=== PATIENT | male | born 1945 | race Caucasian/White ===

== ENCOUNTER 2024-01-13 09:11 | Outpatient (CLI) | payer MEDICARE, BC | END 2024-01-13 09:12 | disposition home or self-care (01) | LOC: LABBT 09:11 | PROVIDERS: ATTEND Thoracic Surgery (Cardiothoracic Vascular Surgery) | DX: Z01.818 Encounter for other preprocedural examination (principal); I74.09 Other arterial embolism and thrombosis of abdominal aorta | CPT/HCPCS: 71046 ==

== ENCOUNTER 2024-01-13 09:30 | Inpatient (IN) | payer MEDICARE, BC ==
[2024-01-13 11:27] LABS: Hematocrit 51.5 % (38.8-50.0); Hemoglobin 17.8 g/dL (13.5-17.5); Mean Corpuscular HGB CONC 34.6 g/dL (32.0-36.0); Mean Corpuscular Hemoglobin 31.4 pg (27.0-33.0); Mean Corpuscular Volume 90.8 fl (81.2-95.1); Mean Platelet Volume 10.7 fl (7.4-10.4); Platelet Count 262 10x3/uL (150-450); RBC Distribution Width 13.8 % (11.5-14.5); Red Blood Cell (RBC) Count 5.67 10x6/uL (4.32-5.72); White Blood Cell (WBC) Count 8.7 10x3/uL (3.5-10.5)
[2024-01-13 11:55] LABS: Anion Gap 15 mmol/L (10-20); BUN (Urea Nitrogen) 19 mg/dL (8.4-25.7); Calc. Creatinine Clearance 0 mL/min (70-130); Calcium 9.6 mg/dL (7.8-10.44); Carbon Dioxide 24 mmol/L (23-31); Chloride 104 mmol/L (98-107); Estimated GFR 84; Glucose 117 mg/dL (83-110); Potassium 4.3 mmol/L (3.5-5.1); Sodium 139 mmol/L (136-145)
[2024-01-13 12:22] LABS: PTT 26.8 sec (22.0-33.0); Prothrombin Time 10.7 sec (9.5-12.1)
[2024-01-15] MEDS ORDERED: Heparin 5,000 UNITS/ML VIAL ONE (06:36)
[2024-01-15] MEDS ORDERED: EPINEPHrine 1 MG/ML VIAL ONE (06:37)
[2024-01-15] MEDS ORDERED: Bupivacaine PF 0.5% 30 ML VIAL ONE (06:37)
[2024-01-15] MEDS ORDERED: PROPOFOL 20 ML ONE (06:46)
[2024-01-15] MEDS ORDERED: fentaNYL PF 100 MCG/2 ML SYRINGE ONE ×4 (06:46→11:44)
[2024-01-15] MEDS ORDERED: Vecuronium 10 MG VIAL ONE (06:46)
[2024-01-15] MEDS ORDERED: Lidocaine 2% PF 5 ML VIAL ONE (06:46)
[2024-01-15] MEDS ORDERED: PHENYLEPHRINE-NS 100 MCG/ML 10 ML SYRINGE ONE ×2 (06:46→06:48)
[2024-01-15] MEDS ORDERED: Lidocaine 1% PF 5 ML VIAL ONE (06:48)
[2024-01-15] MEDS ORDERED: Glycopyrrolate 0.2 MG/ML 5 ML SYRINGE ONE (06:48)
[2024-01-15] MEDS ORDERED: NEOSTIGMINE 3 MG/3 ML SYR 3 MG/3 ML SYRINGE ONE (06:48)
[2024-01-15] MEDS ORDERED: Midazolam HCl 2 mg/2 ml Vial ONE (06:58)
[2024-01-15] MEDS ORDERED: Ondansetron ODT 4 MG TAB ONE (07:10)
[2024-01-15] MEDS ORDERED: Sodium Chloride 0.9% 100 ML ONE (07:15)
[2024-01-15] MEDS ORDERED: Heparin 10,000 UNITS/1 ML VIAL 30,000 UNITS in Sodium Chloride 0.9% 1,000 ML FS SCH (07:15)
[2024-01-15] MEDS ORDERED: CEFAZOLIN 2 GM VIAL ONE (07:15)
[2024-01-15] MEDS ORDERED: ePHEDrine Sulfate 50 MG/10 ML VIAL ONE (08:05)
[2024-01-15] MEDS ORDERED: Dexamethasone 20 MG/5 ML VIAL ONE (08:13)
[2024-01-15] MEDS ORDERED: Ondansetron PF 4 MG/2 ML Vial ONE (08:13)
[2024-01-15] MEDS ORDERED: Dexmedetomidine 200 MCG/2 ML VIAL ONE (08:13)
[2024-01-15] MEDS ORDERED: Albumin 5% 500 ML ONE (08:54)
[2024-01-15] MEDS ORDERED: Protamine Sulfate 50 MG/5 ML VIAL ONE (09:47)
[2024-01-15] MEDS ORDERED: hydrALAZINE 20 MG/ML VIAL ONE ×2 (10:42→11:44)
[2024-01-15] MEDS ORDERED: Nitroglycerin 50 MG/250 ML BOT 250 ML IVPB PRN (10:45)
[2024-01-15] MEDS ORDERED: Ondansetron PF 4 MG/2 ML Vial IVP PRN (10:45)
[2024-01-15] MEDS ORDERED: Phenylephrine 40 MG in Sodium Chloride 0.9% 250 ML 250 ML IVPB PRN (10:45)
[2024-01-15] MEDS ORDERED: Ipratropium/Albuterol 3 ML NEB NEB PRN (10:45)
[2024-01-15] MEDS ORDERED: diphenhydrAMINE 25 MG CAP PO PRN (10:59)
[2024-01-15] MEDS ORDERED: diphenhydrAMINE 50 MG/ML VIAL IM PRN (10:59)
[2024-01-15] MEDS ORDERED: Promethazine HCl 25 MG/ML VIAL IM PRN (10:59)
[2024-01-15] MEDS ORDERED: Naloxone HCl 0.4 mg/ml Vial IV PRN (10:59)
[2024-01-15] MEDS ORDERED: diphenhydrAMINE 50 MG/ML VIAL IVP PRN (10:59)
[2024-01-15] MEDS ORDERED: FENTANYL 500 MCG/10 ML VIAL 2,000 MCG in Sodium Chloride 0.9% 60 ML IV PRN (10:59)
[2024-01-15] MEDS ORDERED: Communication Order-Pharmacy FS SCH (11:00)
[2024-01-15] MEDS ORDERED: Nitroglycerin 50 MG/250 ML BOT 250 ML ONE (11:07)
[2024-01-15] MEDS ORDERED: D5 1/2 NS w/20 mEq KCL 1,000 ML ONE (11:18)
[2024-01-15] MEDS: D5 1/2 NS w/20 mEq KCL 1,000 ML IV SCH (12:59)
[2024-01-15] MEDS: CEFAZOLIN 2 GM in Sodium Chloride 0.9% 100 ML IVPB SCH (17:35)
[2024-01-16 04:20] LABS: #Basophils Less than 0.03 10x3/uL (0.0-0.2); #Eosinphils Less than 0.03 10x3/uL (0.0-0.7); %Basophils 0.1 % (0.0-1.0); %Eosinophils 0.1 % (0.0-10.0); %Lymphocytes 7.6 % (21.0-51.0); %Monocytes 11.3 % (0.0-10.0); %Neutrophils 80.5 % (42.0-75.0); Hematocrit 42.1 % (42.0-52.0); Hemoglobin 13.9 g/dL (14.0-18.0); Mean Corpuscular Hemoglobin 30.1 pg (27.0-31.0); Mean Corpuscular Volume 91.1 fL (78.0-98.0); Mean Platelet Volume 10.3 fL (7.4-10.4); Platelet Count 209 10x3/uL (130-400); RBC Distribution Width 14.2 % (11.5-14.5); Red Blood Cell (RBC) Count 4.62 mill/uL (4.70-6.10)
[2024-01-16 04:33] LABS: Anion Gap 11 mmol/L (10-20); BUN (Urea Nitrogen) 14 mg/dL (8.4-25.7); Calc. Creatinine Clearance 100 mL/min (70-130); Calcium 8.6 mg/dL (7.8-10.44); Carbon Dioxide 21 mmol/L (23-31); Chloride 110 mmol/L (98-107); Estimated GFR 92; Glucose 133 mg/dL (83-110); Potassium 4.5 mmol/L (3.5-5.1); Sodium 137 mmol/L (136-145)
[2024-01-16] MEDS: Losartan 25 MG TAB PO SCH (11:30)
[2024-01-16] MEDS: Atorvastatin Calcium 20 MG TAB PO SCH ×2 (11:30→20:14)
[2024-01-16] MEDS ORDERED: FENTANYL 500 MCG/10 ML VIAL 2,000 MCG in Sodium Chloride 0.9% 60 ML IV PRN (11:33)
[2024-01-16] MEDS: Fentanyl CADD 100 ML IV PRN (13:43)
[2024-01-16] MEDS: Ondansetron PF 4 MG/2 ML Vial IVP PRN (20:14)
[2024-01-17] MEDS: hydrALAZINE 20 MG/ML VIAL SLOW IVP PRN (05:40)
[2024-01-17 06:18] LABS: #Basophils 0.06 10x3/uL (0.0-0.2); %Basophils 0.3 % (0.0-1.0); %Eosinophils 0.2 % (0.0-10.0); %Lymphocytes 5.9 % (21.0-51.0); Hematocrit 43.7 % (42.0-52.0); Hemoglobin 14.1 g/dL (14.0-18.0); Mean Corpuscular HGB CONC 32.3 g/dL (32.0-36.0); Mean Corpuscular Hemoglobin 30.6 pg (27.0-31.0); Mean Corpuscular Volume 94.8 fL (78.0-98.0); Mean Platelet Volume 10.3 fL (7.4-10.4); Platelet Count 213 10x3/uL (130-400); RBC Distribution Width 14.1 % (11.5-14.5); Red Blood Cell (RBC) Count 4.61 mill/uL (4.70-6.10)
[2024-01-17 06:33] LABS: Anion Gap 10 mmol/L (10-20); BUN (Urea Nitrogen) 12 mg/dL (8.4-25.7); Calc. Creatinine Clearance 98 mL/min (70-130); Calcium 8.9 mg/dL (7.8-10.44); Carbon Dioxide 24 mmol/L (23-31); Chloride 107 mmol/L (98-107); Estimated GFR 91; Glucose 138 mg/dL (83-110); Potassium 4.3 mmol/L (3.5-5.1); Sodium 137 mmol/L (136-145)
[2024-01-17] MEDS: Acetaminophen 325 MG TAB PO SCH ×2 (09:43→17:34)
[2024-01-17] MEDS: Losartan 25 MG TAB PO SCH (09:43)
[2024-01-17] MEDS: Furosemide 40 MG (4 mL) VIAL SLOW IVP SCH ×2 (09:56→09:57)
[2024-01-17 12:58] LABS: Actual Bicarbonate (HCO3a) 21.3 mEq/L (22-28); Analyzer IN Cardio OR; Base Excess (BEa) -3.2 mEq/L (-2.0 to +3.0); Calcium, Ionized (arterial) 1.18 mmol/L (1.12-1.30); Carboxyhemoglobin (COHb) 1.8 gm% (0.0-3.0); Hematocrit-ABG 49 % (42.0-52.0); Hemoglobin (Hb) 16.5 g/dL (14.0-18.0); O2 Tension (PaO2), arterial 374.3 mmHg (> 70.0); Potassium - ABG Lab 4.38 mmol/L (3.70-5.30); pH, Arterial 7.379 (7.35-7.45)
[2024-01-17 12:59] LABS: Actual Bicarbonate (HCO3a) 18.2 mEq/L (22-28); Analyzer IN Cardio OR; Base Excess (BEa) -6.9 mEq/L (-2.0 to +3.0); CO2 Tension 35.7 mmHg (35.0-45.0); Calcium, Ionized (arterial) 1.14 mmol/L (1.12-1.30); Carboxyhemoglobin (COHb) 1.8 gm% (0.0-3.0); Hematocrit-ABG 46 % (42.0-52.0); Hemoglobin (Hb) 15.6 g/dL (14.0-18.0); O2 Tension (PaO2), arterial 403.2 mmHg (> 70.0); Potassium - ABG Lab 4.29 mmol/L (3.70-5.30); pH, Arterial 7.325 (7.35-7.45)
[2024-01-17 15:31] VITALS: BMI 25.9
[2024-01-17] MEDS: Ketorolac Tromethamine 30 MG (1 mL) VIAL IVP SCH (17:33)
[2024-01-17] MEDS: Pantoprazole DR 40 MG TAB PO SCH (18:20)
[2024-01-18] MEDS: HYDROcodone/Acetaminophen 5/325 mg Tablet PO PRN (03:58)
[2024-01-18] MEDS: Pantoprazole DR 40 MG TAB PO SCH (08:13)
[2024-01-19 06:46] LABS: #Basophils 0.07 10x3/uL (0.0-0.2); %Basophils 0.6 % (0.0-1.0); %Eosinophils 2.6 % (0.0-10.0); %Lymphocytes 12.3 % (21.0-51.0); %Monocytes 11.1 % (0.0-10.0); %Neutrophils 72.9 % (42.0-75.0); Hemoglobin 14.1 g/dL (14.0-18.0); Mean Corpuscular HGB CONC 33.6 g/dL (32.0-36.0); Mean Corpuscular Hemoglobin 30.8 pg (27.0-31.0); Mean Corpuscular Volume 91.7 fL (78.0-98.0); Platelet Count 229 10x3/uL (130-400); RBC Distribution Width 13.6 % (11.5-14.5); Red Blood Cell (RBC) Count 4.58 mill/uL (4.70-6.10)
[2024-01-19] MEDS ORDERED: D5 1/2 NS w/20 mEq KCL 1,000 ML IV SCH (07:00)
[2024-01-19 07:30] LABS: Anion Gap 13 mmol/L (10-20); BUN (Urea Nitrogen) 16 mg/dL (8.4-25.7); Calc. Creatinine Clearance 101 mL/min (70-130); Carbon Dioxide 20 mmol/L (23-31); Chloride 107 mmol/L (98-107); Estimated GFR 92; Glucose 117 mg/dL (83-110); Potassium 3.7 mmol/L (3.5-5.1); Sodium 136 mmol/L (136-145)
[2024-01-19] MEDS: Furosemide 40 MG (4 mL) VIAL SLOW IVP SCH (07:34)
[2024-01-20] MEDS: Acetaminophen 325 MG TAB PO PRN (09:05)
[2024-01-21] MEDS: Amlodipine 5 MG TAB PO SCH (08:53)
[2024-01-21] MEDS: Cholecalciferol 1,000 UNITS (25 MCG) TAB PO SCH (08:54)
[2024-01-21] MEDS: Fish Oil 1,000 MG CAP PO SCH (08:54)
[2024-01-21] MEDS: Aspirin 81 mg Enteric Coated Tablet PO SCH (08:57)
[2024-01-22 09:32] VITALS: BP 117/65; TEMP 97.3
== END 2024-01-22 09:55 | disposition home or self-care (01) | DRG 272 ==
LOC: EDSTATUS 09:30 → SURG A 01-15 06:25 → CCU 01-15 14:55 → 2NO 01-19 13:34
PROVIDERS: ADMIT Thoracic Surgery (Cardiothoracic Vascular Surgery); ATTEND Thoracic Surgery (Cardiothoracic Vascular Surgery)
PROC: 04100JH Bypass Abdominal Aorta to Right Femoral Artery with Synthetic Substitute, Open Approach (ICD-10-PCS; principal; 2024-01-15)
DX: I74.09 Other arterial embolism and thrombosis of abdominal aorta (principal); I71.40 Abdominal aortic aneurysm, without rupture, unspecified; I10 Essential (primary) hypertension; E78.5 Hyperlipidemia, unspecified; Z79.899 Other long term (current) drug therapy; Z90.49 Acquired absence of other specified parts of digestive tract
CPT/HCPCS: 36415; 36416; 71046; 80048; 82805; 85025; 85027; 85610; 85730; 86850; 86900; 86901; C1713; J0171; J0360; J0665; J1100; J1642; J1644; J1885; J1940; J2001; J2250; J2405; J2704; J2720; J3010; J3480; J3490; P9045; Q0162